=== PATIENT | female | born 2000 | race Caucasian/White ===

== ENCOUNTER 2022-12-30 09:26 | Emergency (ER) | payer OTHER ==
[~2022-12-30] VITALS: Ht 180.3 cm; Wt 72.7 kg
[2022-12-30] MEDS ORDERED: normal saline 1000ML IV soln IVB ONE ×3 (09:50→11:25)
[2022-12-30] MEDS ORDERED: metoclopramide 5 mg/ml inj IV ONE (09:50)
[2022-12-30] MEDS ORDERED: LORazepam 2 mg/ml vial IV ONE (09:50)
[2022-12-30] MEDS ORDERED: diphenhydrAMINE 50 mg/ml inj IV ONE (09:50)
[2022-12-30 10:04] LABS: BASOPHILS # (AUTO) 0.1 X10'3 (0-0.2); BASOPHILS % (AUTO) 0.4 % (0-1); EOSINOPHILS % (AUTO) 0 % (0-6); HEMATOCRIT 41.3 % (35.0-45.0); HEMOGLOBIN 14.3 g/dl (12.0-16.0); LYMPHOCYTES # (AUTO) 0.9 X10'3 (1.1-4.8); LYMPHOCYTES % (AUTO) 5.5 % (21-51); MEAN CORPUSCULAR HGB CONC 34.6 g/dL (33.0-36.5); MEAN CORPUSCULAR VOLUME 89.7 FL (78-98); MEAN PLATELET VOLUME 8.7 FL (7.4-10.4); MONOCYTES # (AUTO) 0.7 X10'3 (0-0.9); MONOCYTES % (AUTO) 4.4 % (2-12); NEUTROPHILS # (AUTO) 14.8 X10'3 (1.8-7.7); NEUTROPHILS % (AUTO) 89.7 % (42-75); PLATELET COUNT 351 X10'3 (140-440); RED BLOOD COUNT 4.61 X10'6 (4.20-5.60); RED CELL DISTRIBUTION WIDTH 12.3 % (11.5-14.5); WHITE BLOOD COUNT 16.5 X10'3 (4.5-11.0)
[2022-12-30 10:19] LABS: ALANINE AMINOTRANSFERASE 28 U/L (12-78); ALBUMIN 4.3 G/DL (3.4-5.0); ALBUMIN/GLOBULIN RATIO 1.2 (1.1-1.5); ALKALINE PHOSPHATASE 60 IU/L (46-116); ANION GAP 21 (8-16); ASPARTATE AMINO TRANSFERASE 16 U/L (10-37); BILIRUBIN,TOTAL 1.1 MG/DL (0.1-1.0); BLOOD UREA NITROGEN 8 MG/DL (7-18); BUN/CREATININE RATIO 8.7 (10.0-20.0); CALCIUM 9.5 MG/DL (8.5-10.1); CHLORIDE 105 MMOL/L (99-107); CREATININE 0.92 MG/DL (0.40-0.90); GLUCOSE 170 MG/DL (70-104); LIPASE 55 U/L (73-393); POTASSIUM 3.2 MMOL/L (3.5-5.1); SODIUM 140 MMOL/L (135-145); TOTAL PROTEIN 7.9 G/DL (6.4-8.2); eGFR 75 ML/MIN
[2022-12-30 10:25] LABS: TOTAL CARBON DIOXIDE 14.3 MMOL/L (24-32)
--- NOTE | 2022-12-30 10:34 | NUR ---
PT CO2 IS 14.3. RN NOTIFIED JESUS ARCE
[2022-12-30 11:07] LABS: URINE HCG NEGATIVE (NEG)
[2022-12-30 11:18] LABS: CLARITY,URINE CLEAR (Clear); COLOR,URINE YELLOW (Yellow); GLUCOSE, URINE NEGATIVE (Neg); KETONES,URINE >=80 mg/dl (Neg); LEUKOCYTE ESTERASE ,URINE NEGATIVE (Neg); NITRITES, URINE NEGATIVE (Neg); OCCULT BLOOD,URINE NEGATIVE (Neg); PH,URINE 6.5 (4.8-8.0); PROTEIN,URINE NEGATIVE (Neg); UROBILINOGEN,URINE 0.2 E.U/dL (0.2-1.0)
[2022-12-30 11:19] LABS: UA COLLECTION TYPE CLN CATCH MIDSTREAM
[2022-12-30] MEDS ORDERED: haloperidol lactate 5mg/ml inj IM ONE (11:25)
[2022-12-30] MEDS ORDERED: PROC25SU31 RC (12:57)
[2022-12-30] MEDS ORDERED: ONDA4TAB12 PO (12:57)
[2022-12-30 12:59] VITALS: BP 121/65
[2022-12-30 13:55] LABS: HEMOGLOBIN A1C 5.1 % (4.5-6.2)
== END 2022-12-30 13:28 | disposition home or self-care (01) ==
LOC: ER 09:27
DX: R11.15 Cyclical vomiting syndrome unrelated to migraine (principal); Z88.1 Allergy status to other antibiotic agents
CPT/HCPCS: 36415; 80053; 81003; 81025; 83036; 83690; 84145; 85025; 96361; 96372; 96374; 96375; 99284; J1200; J1630; J2060; J2765; J7030